=== PATIENT | female | born 1990 ===

== ENCOUNTER 2024-12-27 13:17 | Day surgery (SDC) | payer OTHER ==
[~2024-12-27] VITALS: Ht 170.2 cm; Wt 69.0 kg
[2024-12-27] MEDS ORDERED: DEPAKOTE ER500 M2 PO (13:30)
[2024-12-27] MEDS ORDERED: ETONOGESTREL-E1 EAC1 VG (13:30)
[2024-12-27] MEDS ORDERED: TOPI100 PO (13:31)
[2024-12-27] MEDS ORDERED: OXYB5 PO (13:31)
[2024-12-27] MEDS ORDERED: HYDPAM25 PO (13:34)
[2024-12-27] MEDS ORDERED: DIVA500EC PO (13:35)
[2024-12-27] MEDS ORDERED: Midazolam HCL 1 MG/ML 5MLVIAL ONE (14:06)
== END 2024-12-27 15:15 | disposition home or self-care (01) ==
LOC: ORSCSDS 13:17
PROVIDERS: Internal Medicine Gastroenterology
PROC: 0DBE8ZX Excision of Large Intestine, Via Natural or Artificial Opening Endoscopic, Diagnostic (ICD-10-PCS; principal; 2024-12-27 14:30)
PROC: 0DB98ZX Excision of Duodenum, Via Natural or Artificial Opening Endoscopic, Diagnostic (ICD-10-PCS; principal; 2024-12-27 14:30)
DX: R19.7 Diarrhea, unspecified (principal); R11.2 Nausea with vomiting, unspecified; K21.9 Gastro-esophageal reflux disease without esophagitis; R10.13 Epigastric pain
CPT/HCPCS: 88305; J2250; J2704; J7120